=== PATIENT | female | born 1940 | race Caucasian/White ===

== ENCOUNTER 2022-06-02 00:45 | Observation (INO) | payer MEDICARE, SELFPAY ==
[2022-06-02] VITALS (9 sets, daily range): BP systolic 133–209; BP diastolic 66–107; PULSE 63–98; RESP 16–20; TEMP 36.4–37; O2SAT 94–98; BMI 36.3; BMI 34.2
--- NOTE | 2022-06-02 01:56 | CT_ITS ---
EXAM: CT ABDOMEN AND PELVIS WITH INTRAVENOUS CONTRAST CLINICAL INDICATION: Left sided pain TECHNIQUE: Helically acquired images were obtained of the abdomen and pelvis with intravenous contrast. This CT exam was performed using one or more of the following dose reduction techniques: automated exposure control, adjustment of the mA and/or kV according to patient size, and/or use of iterative reconstruction technique. This report was created using [employer] report generation technology. CONTRAST: IV 100mL Isovue-[id number] RADIATION DOSE: Total DLP: 1124.70 mGy-cm. COMPARISON: None. FINDINGS: LOWER THORAX: Visualized lung bases are clear. Mild coronary artery calcification is noted. No significant pericardial effusion. ABDOMEN: LIVER: Moderate fatty infiltration of the liver. Portal veins enhance normally. GALLBLADDER AND BILE DUCTS: Gallbladder is partially contracted. No calcified gallstones or biliary ductal dilatation. No common duct stones are seen. No gallbladder distention or wall edema. PANCREAS: Pancreatic body and tail are slightly prominent as compared to the head, with mild hazy peripancreatic stranding about the body and tail, consistent with mild acute pancreatitis. Trace of stranding about the pancreatic head and uncinate process, radiating toward the base of the mesentery. There is minimal associated thickening of Gerota''s fascia on the left. No nonenhancing parenchyma, pseudocyst, or pancreatic ductal dilatation identified. SPLEEN: Unremarkable. Normal size without focal cystic or solid mass. ADRENALS: Unremarkable. No nodules. KIDNEYS AND URETERS: Cortical scarring at the upper pole of the right kidney. Extremely small/atrophic left kidney. 4 mm lobulated nonobstructing stone within the interpolar collecting system of the right kidney. Small nonobstructing stone at the upper pole of the left kidney. STOMACH AND BOWEL: Stomach is decompressed. No distended small bowel loops. Large uncomplicated diverticulum projects from the duodenum. Numerous diverticula project from the descending and sigmoid colon, without evidence for diverticulitis. PELVIS: APPENDIX: Normal. No evidence of acute appendicitis. BLADDER: Urinary bladder is nearly empty. REPRODUCTIVE: The hypodense endometrial stripe is prominent for patient of this age group, measuring 12 mm in thickness. No adnexal mass. ABDOMEN and PELVIS: INTRAPERITONEAL SPACE: Unremarkable. No ascites or other fluid collection. No free air. BONES/JOINTS: Severe degenerative disc space narrowing with vacuum disc phenomenon, endplate sclerosis and marginal osteophytes at the L2/3 level. Less severe degenerative disc space narrowing with mild endplate sclerosis and vacuum phenomenon at L5/S1. Severe lower lumbar facet arthritis with slight anterolisthesis of L4 on L5. No suspicious lytic or blastic abnormality. SOFT TISSUES: Unremarkable. No discrete abdominal or pelvic wall hernia. VASCULATURE: Calcific abdominal aorta and its branches. No AAA. SMA and CAIN enhance normally. LYMPH NODES: Unremarkable. No enlarged lymph nodes. CT/Abdomen/Pelvis W IV Cont ONLY IMPRESSION: Findings of mild acute pancreatitis. No pancreatic pseudocyst or nonenhancing parenchyma. Fatty infiltration of the liver. No gallstones or biliary ductal dilatation. Diverticulosis coli without evidence for acute diverticulitis. Prominent endometrial stripe, which may be due to exogenous hormonal therapy but SCISSORS SHARPENER follow-up is suggested, especially if there is a history of postmenopausal bleeding. Electronically Signed: Leo Frank MD at 3:29 EST ,
--- NOTE | 2022-06-02 01:57 | ED.VIS.GI ---
HPI HPI - GI History of Present Illness Chief Complaint: Abd Pain Informant: patient Narrative Narrative: Patient tells me she has been having abdominal discomfort and bloating for she thinks about 4 or 5 days. Her appetite has been down but she has no nausea or vomiting. She states she just does not feel like eating. She is not sure when her last bowel movement was but thinks it was about a week ago. No blood in the stool. She is still passing gas. She describes the pain as very gassy. She is able to eat and drink. It does not necessarily bother her stomach. No fevers or chills. She did state that her urine has been a little darker and she has noticed a stronger odor over the last 4 or so days. There is no actual dysuria. She thought this was due to not drinking as much fluids. She denies ever having any abdominal surgery including TOUCH UP PAINTER HAND, cholecystectomy or appendectomy. She does have an occasional martini in the evening but cannot recall when she had the last 1. It is just an occasional thing. No change in medications. She has a history of high blood pressure thyroid disease. Medicines are reviewed. She also has a history of some mild GERD. She has no sour or acid taste in her mouth today. She has no back or flank pain. She has not been lightheaded syncopal or presyncopal. No chest pain or trouble breathing. PFSH PFSH Medical History Anxiety Depression GERD (gastroesophageal reflux disease) Hypertension Hypothyroidism Irregular heart beat Kidney disease Smoker Home Medications amlodipine 10 mg tablet (Norvasc) 10 mg PO DAILY 06/02/22 [History Last Taken Unknown] aspirin 81 mg chewable tablet 81 mg PO DAILY 06/02/22 [History Last Taken Unknown] citalopram 40 mg tablet 40 mg PO DAILY 06/02/22 [History Last Taken Unknown] levothyroxine 100 mcg tablet 100 mcg PO DAILY 06/02/22 [History Last Taken Unknown] lorazepam 0.5 mg tablet 0.5 mg PO DAILY PRN Anxiety 06/02/22 [History Last Taken Unknown] omeprazole 20 mg capsule,delayed release 20 mg PO DAILY 06/02/22 [History Last Taken Unknown] Allergy/AdvReac Type Severity Reaction Status Date / Time No Known Allergies Allergy Verified 06/02/22 00:54 Social History Smoking Status: Current every day smoker tobacco type: cigarettes ROS ROS ED Constitutional Constitutional ED: Denies chills, fever(s) or subjective ENT ENT ED: Denies rhinorrhea Cardiovascular Cardiovascular: Denies chest pain or palpitations Respiratory/Chest Respiratory/Chest: Denies cough or dyspnea Gastrointestinal Gastrointestinal: Reports abdominal pain and constipation; Denies diarrhea, melena, nausea or vomiting Genitourinary Genitourinary ED: Reports other Details: Urine has been darker and occasionally malodorous for about 4 days. ; Denies dysuria, hematuria or urinary frequency Musculoskeletal Musculoskeletal: Denies back pain Integumentary Denies rash Neurologic Neurologic: Denies headache(s) Endocrine Endocrinology: Denies polydipsia or polyuria Hematologic/Lymphatic Hematologic/Lymphatic: Denies easy bleeding, easy bruising or lymphadenopathy Allergic/Immunologic Allergic/Immunologic ED: Denies urticaria EXAM Physical Exam Const Vital Signs: 06/02/22 00:48 06/02/22 03:54 06/02/22 04:40 Temperature 98.6 F 97.9 F Temperature Source Oral Temporal Pulse Rate 98 77 Respiratory Rate 20 H 16 16 Blood Pressure 209/107 H 167/90 H Blood Pressure Mean 141 115 Pulse Ox 94 94 Oxygen Delivery Method Room Air Room Air Positive well nourished, well developed and obese General Appearance ED: well developed and NAD Nutritional Appearance: obese HEENT HEENT Narrative: Mildly dry mucous membranes. Eyes General Eye ED: Yes scleral icterus Neck supple Resp normal respiratory effort and clear to auscultation bilaterally Cardio regular rate and regular rhythm GI GI Narrative: Abdomen is soft but does appear to be somewhat distended. There seems to be mild tenderness and even some firmness in the left upper quadrant. Back/Spine no CVA tenderness Extremity full ROM Neuro Neuro Narrative: Patient is awake alert appropriate. She is actually fairly good informant for her past history and medications. Sensorium / Orientation: alert Psych mental status grossly normal Skin no wounds MDM MDM MDM Narrative Medical decision making narrative: CBC shows mild elevation of the hemoglobin that could be due to some slight hemoconcentration. White count and platelets are normal. Electrolytes show minimally decreased potassium sodium. Creatinine is just slightly high. I do not have a baseline for her. Glucose is also high at 218. She denies history of diabetes. Liver function tests are not showing any marked abnormalities. However her lipase is 1746. With this patient's age, worsening pain for 5 days, decreased p.o., generalized weakness, living at home and elevated glucose with her acute pancreatitis and is discussed case with hospitalist. Hospitalist came down to see her and agreed to admit. We do not feel that this patient likely would do well at home. She states she is already feeling weak and does not feel like she can eat. Lab Data Attestation: I reviewed the patient's lab results. Labs: Laboratory Results - last 24 hr 06/02/22 06/02/22 06/02/22 01:07 01:07 01:07 WBC 9.1 RBC 5.13 Hgb 15.4 H Hct 45.8 MCV 89.3 MCH 30.0 MCHC 33.6 RDW Std Deviation 40.2 RDW Coeff of Juan Alberto 12.1 Plt Count 227 MPV 9.0 Immature Gran % (Auto) 0.300 Neut % (Auto) 66.8 Lymph % (Auto) 19.2 [place] % (Auto) 11.5 H Eos % (Auto) 1.8 Baso % (Auto) 0.4 Absolute Neuts (auto) 6.1 Absolute Lymphs (auto) 1.75 Nucleated RBC % 0 Sodium 134 L Potassium 3.2 L Chloride 99 Carbon Dioxide 30.0 Anion Gap 5 BUN 11 Creatinine 1.20 H Estim Creat Clear Calc 35.00 Est GFR (MDRD) Af Amer 56 L Est GFR (MDRD) Non-Af 46 L BUN/Creatinine Ratio 9.2 L Glucose 218 H Hemoglobin A1c Calcium 9.0 Total Bilirubin 0.30 AST 16 ALT 17 Alkaline Phosphatase 61 Total Protein 7.6 Albumin 2.9 L Globulin 4.7 H Albumin/Globulin Ratio 0.6 L Triglycerides Cholesterol LDL Cholesterol VLDL Cholesterol HDL Cholesterol Lipase 1746 H Urine Color Urine Clarity Urine pH Ur Specific [place] Urine Protein Urine Glucose (UA) Urine Ketones Urine Occult Blood Urine Nitrite Urine Bilirubin Urine Urobilinogen Ur Leukocyte Esterase Urine RBC Urine WBC Ur Squamous Epith Cells Urine Bacteria Urine Mucus 06/02/22 06/02/22 06/02/22 01:07 01:07 02:08 WBC RBC Hgb Hct MCV MCH MCHC RDW Std Deviation RDW Coeff of Juan Alberto Plt Count MPV Immature Gran % (Auto) Neut % (Auto) Lymph % (Auto) [place] % (Auto) Eos % (Auto) Baso % (Auto) Absolute Neuts (auto) Absolute Lymphs (auto) Nucleated RBC % Sodium Potassium Chloride Carbon Dioxide Anion Gap BUN Creatinine Estim Creat Clear Calc Est GFR (MDRD) Af Amer Est GFR (MDRD) Non-Af BUN/Creatinine Ratio Glucose Hemoglobin A1c 7.9 H Calcium Total Bilirubin AST ALT Alkaline Phosphatase Total Protein Albumin Globulin Albumin/Globulin Ratio Triglycerides 110 Cholesterol 170 LDL Cholesterol 108 VLDL Cholesterol 22 HDL Cholesterol 40 Lipase Urine Color Yellow Urine Clarity Clear Urine pH 7.0 Ur Specific [place] 1.010 Urine Protein 500 H Urine Glucose (UA) 100 H Urine Ketones Negative Urine Occult Blood 25 H Urine Nitrite Positive H Urine Bilirubin Negative Urine Urobilinogen 1 H Ur Leukocyte Esterase 500 H Urine RBC 0-5 SEEN Urine WBC 0-5 SEEN Ur Squamous Epith Cells 0-5 SEEN Urine Bacteria 2+ Urine Mucus 0 SEEN Radiography Diagnostic Testing: Clinical Impression(s) from Imaging Studies Abdomen/Pelvis CT 06/02/22 01:56 IMPRESSION: Findings of mild acute pancreatitis. No pancreatic pseudocyst or nonenhancing parenchyma. Fatty infiltration of the liver. No gallstones or biliary ductal dilatation. Diverticulosis coli without evidence for acute diverticulitis. Prominent endometrial stripe, which may be due to exogenous hormonal therapy but TOUCH UP PAINTER HAND follow-up is suggested, especially if there is a history of postmenopausal bleeding. Electronically Signed: Leo Frank MD at 3:29 EST , CT scan does show signs of pancreatitis. No gallstones or biliary ductal dilatation was seen. Diverticulosis but no diverticulitis. There was a prominent endometrial stripe. This can be worked up as outpatient. Discharge Plan Dx/Rx/DC Orders Clinical Impression: Acute pancreatitis, Generalized weakness Disposition Disposition: Acute Care Hospital [facility] Discharge Date/Time: 06/02/22 06:32
[2022-06-02 02:12] LABS: Absolute Lymphocyte Count 1.75 X10^3/uL (0.83-4.51); Absolute Neutrophil Count 6.1 X10^3/uL (2.0-7.7); Basophil# 0.04 X10^3/uL; Basophil% 0.4 % (0-1); Eosinophil# 0.16 X10^3/uL; Eosinophils% 1.8 % (0-5); Hematocrit 45.8 % (37-47); Hemoglobin 15.4 g/dL (12.0-15.0); Lymphocyte # 1.75 X10^3/ul (0.83-4.51); Lymphocyte % 19.2 % (19-41); Mean Corp Hgb Conc 33.6 g/dL (32-36); Mean Corpuscular Volume 89.3 fL (81-99); Monocyte# 1.05 X10^3/uL; Monocyte% 11.5 % (0-10); NRBC Flagged by Analyzer 0 % (0-5); Neutrophil # 6.09 X10^3/uL (2.7-7.7); Neutrophil % 66.8 % (47-70); Platelet Count 227 K/mm3 (150-450); RBC Distribution Width CV 12.1 % (11.6-14.6); RBC Distribution Width SD 40.2 fl (35.1-43.9); Red Blood Count 5.13 M/mm3 (4.2-5.4); White Blood Count 9.1 K/mm3 (4.4-11.0)
[2022-06-02 02:13] LABS: Mucous, Urine 0 SEEN /hpf (<or=2+)
[2022-06-02 02:29] LABS: Color, Urine Yellow (Yellow); Glucose, Dipstick 100 mg/dl (Normal); Ketone-Dipstick Negative (Negative); Leukocyte Esterase-Dipstick 500 /ul (Negative); Nitrite-Dipstick Positive (Negative); Occult Blood-Urine 25 /ul (Negative); Protein-Dipstick 500 mg/dl (Negative); Urine Bilirubin Dipstick Negative (Negative); Urine Clarity Clear (Clear); Urine Urobilinogen 1 mg/dl (Normal)
[2022-06-02 02:37] LABS: ALB/GLOB Ratio 0.6 RATIO (0.9-2.4); AST(SGOT) 16 U/L (15-37); Alanine Aminotransfer ALT/SGPT 17 U/L (13-56); Albumin, Serum 2.9 g/dL (3.2-5.0); Alkaline Phosphatase 61 U/L (45-117); Anion Gap 5 (5-15); BUN 11 mg/dL (7-18); BUN/Creat Ratio 9.2 RATIO (10-20); Chloride 99 mmol/L (98-107); EST Glomerular Filtration Rate 46 mL/min (>60); Est Glom Filt Rate - Afr Amer 56 mL/min (>60); Globulin 4.7 g/dL (2.2-4.2); Glucose 218 mg/dL (74-106); Potassium 3.2 mmol/L (3.5-5.1); Protein, Total 7.6 g/dL (6.4-8.2); Sodium Level 134 mmol/L (136-145)
[2022-06-02 02:43] LABS: Bacteria 2+ /hpf (None Seen); Red Blood Cells-Urine 0-5 SEEN /hpf (0-5); Squamous Epithelial Cells - UA 0-5 SEEN /hpf (5-10); White Blood Cells 0-5 SEEN /hpf (0-5)
[2022-06-02 04:13] LABS: Lipase 1746 U/L (73-393)
--- NOTE | 2022-06-02 05:31 | US_ITS ---
Examination: Right upper quadrant ultrasound. INDICATION: Pancreatitis. TECHNIQUE: A dedicated ultrasound of the right upper quadrant was obtained including Doppler images. COMPARISON: CT dated June 02, 2022 FINDINGS: The liver is diffusely echogenic consistent with fatty infiltration. There is hepatomegaly. The common bile duct measures 3.9 mm. The gallbladder is within normal limits. No gallstones are visualized. The visualized pancreas is prominent. The right kidney measures 11.2 cm in length. There is no hydronephrosis. There is a nonobstructing 6.4 mm calculus. US/Gallbladder IMPRESSION: Prominent pancreas, may be secondary to pancreatitis. Fatty infiltration of the liver associated with hepatomegaly. Nonobstructing 6.4 mm right renal calculus. Electronically Signed: Annie Steward MD at 10:37 EST ,
--- NOTE | 2022-06-02 05:35 | CASEMGMT ---
Addendum entered and electronically signed by Vero Avila RN 06/02/22 20:43: Correction: Correct time was 1735. Moshe Avila RN Original Note: VICTORIANO CM: VICTORIANO LIGHT in to complete LÓPEZ form at this time.? RN KULDEEP explained L[employer]PEZ for to patient, patient voiced understanding.? Patient signed L[employer]PE[employer] Form and filed in chart.? Patient provided with copy of signed L[employer]PEZ form.? Patient had no further questions or concerns.?? Pt states she is independent with ADLs prior to admission and denies any concerns with discharging to home when medically ready. Moshe Avila RN CM
--- NOTE | 2022-06-02 05:37 | HP.PCM.HOS_ITS ---
HPI - General General Date of Admission: 06/02/22 Date of Service: 06/02/22 Chief Complaint: Abdominal pain HPI Narrative 81-year-old female with history of tobacco use, hypertension, hypothyroidism who presented to [facility] 06/02/2022 with worsening abdominal pain. She is found to have elevated lipase and CT suggestive of pancreatitis, hospitalist consulted for evaluation for potential admission. She reports that she has not been feeling well for about 5 days and had decreased appetite and then over the past 2 days she has had worsening abdominal pain that was significant the day of presentation. It did completely resolve independently in the ER but she continues to have generalized weakness and significant epigastric abdominal tenderness and appears volume depleted. Discussed home versus admitted for observation and she was agreeable to observation. Denies any fevers, has not had problems with significant nausea but does feel like her stomach is currently empty and feels uneasy. Has had some constipation. Denies other complaints today. PFSH Medical History Anxiety Depression GERD (gastroesophageal reflux disease) Hypertension Hypothyroidism Irregular heart beat Kidney disease Smoker Home Medications amlodipine 10 mg tablet (Norvasc) 10 mg PO DAILY 06/02/22 [History Last Taken Unknown] aspirin 81 mg chewable tablet 81 mg PO DAILY 06/02/22 [History Last Taken Unknown] citalopram 40 mg tablet 40 mg PO DAILY 06/02/22 [History Last Taken Unknown] levothyroxine 100 mcg tablet 100 mcg PO DAILY 06/02/22 [History Last Taken Unknown] lorazepam 0.5 mg tablet 0.5 mg PO DAILY PRN Anxiety 06/02/22 [History Last Taken Unknown] omeprazole 20 mg capsule,delayed release 20 mg PO DAILY 06/02/22 [History Last Taken Unknown] Allergy/AdvReac Type Severity Reaction Status Date / Time No Known Allergies Allergy Verified 06/02/22 00:54 Social History Smoking Status: Current every day smoker tobacco type: cigarettes ROS Constitutional Constitutional: Denies chills or fever(s) Eyes Eyes: Denies change in vision ENT HEENT: Denies headache(s), nasal congestion or sore throat Cardiovascular Cardiovascular: Denies chest pain or palpitations Respiratory/Chest Respiratory/Chest: Denies cough or productive cough Gastrointestinal Gastrointestinal: Reports other Details: Epigastric tenderness, poor p.o. intake, constipation Genitourinary Genitourinary: Reports other Details: denies changes in urination Musculoskeletal Musculoskeletal: Reports other Details: Generalized weakness Neurologic Neurologic: Denies focal weakness, numbness or tingling Psychiatric Psychiatric: Denies anxiety Hematologic/Lymphatic Hematologic/Lymphatic: Denies easy bleeding Allergic/Immunologic Allergic/Immunologic: Reports other Details: denies rashes Vital Signs Vital Signs Vital Signs: 06/02/22 00:48 06/02/22 03:54 06/02/22 04:40 Temperature 98.6 F 97.9 F Temperature Source Oral Temporal Pulse Rate 98 77 Respiratory Rate 20 H 16 16 Blood Pressure 209/107 H 167/90 H Blood Pressure Mean 141 115 Pulse Ox 94 94 Oxygen Delivery Method Room Air Room Air Weight Weight: 102.1 kg Body Mass Index (BMI) 36.3 Physical Exam Const alert and no apparent distress Constitutional Narrative: Oriented HEENT normocephalic and head/scalp atraumatic Eyes Eyes Narrative: EOM grossly intact, anicteric Neck supple Resp normal respiratory effort and clear to auscultation bilaterally Cardio regular rate and regular rhythm GI soft to palpation GI Narrative: Significant tenderness to palpation in epigastric region, no rebound, no involuntary guarding, no rigidity Extremity Extremity Narrative: No edema appreciated Neuro moves all extremities Neuro Narrative: No overt focal deficits appreciated Psych Psych Narrative: Cooperative Results Lab / Micro Data Result Diagrams: 06/02/22 01:07 06/02/22 01:07 Labs: Laboratory Results - last 24 hr 06/02/22 01:07: WBC 9.1, RBC 5.13, Hgb 15.4 H, Hct 45.8, MCV 89.3, MCH 30.0, MCHC 33.6, RDW Std Deviation 40.2, RDW Coeff of Juan Alberto 12.1, Plt Count 227, MPV 9.0, Immature Gran % (Auto) 0.300, Neut % (Auto) 66.8, Lymph % (Auto) 19.2, [place] % (Auto) 11.5 H, Eos % (Auto) 1.8, Baso % (Auto) 0.4, Absolute Neuts (auto) 6.1, Absolute Lymphs (auto) 1.75, Nucleated RBC % 0 06/02/22 01:07: Sodium 134 L, Potassium 3.2 L, Chloride 99, Carbon Dioxide 30.0, Anion Gap 5, BUN 11, Creatinine 1.20 H, Estim Creat Clear Calc 35.00, Est GFR (MDRD) Af Amer 56 L, Est GFR (MDRD) Non-Af 46 L, BUN/Creatinine Ratio 9.2 L, Glucose 218 H, Calcium 9.0, Total Bilirubin 0.30, AST 16, ALT 17, Alkaline Phosphatase 61, Total Protein 7.6, Albumin 2.9 L, Globulin 4.7 H, Albumin/Globulin Ratio 0.6 L 06/02/22 01:07: Lipase 1746 H 06/02/22 02:08: Urine Color Yellow, Urine Clarity Clear, Urine pH 7.0, Ur Specific [place] 1.010, Urine Protein 500 H, Urine Glucose (UA) 100 H, Urine Ketones Negative, Urine Occult Blood 25 H, Urine Nitrite Positive H, Urine Bilirubin Negative, Urine Urobilinogen 1 H, Ur Leukocyte Esterase 500 H, Urine RBC 0-5 SEEN, Urine WBC 0-5 SEEN, Ur Squamous Epith Cells 0-5 SEEN, Urine Bacteria 2+, Urine Mucus 0 SEEN Radiology Impression Abdomen/Pelvis CT 06/02/22 01:56 IMPRESSION: Findings of mild acute pancreatitis. No pancreatic pseudocyst or nonenhancing parenchyma. Fatty infiltration of the liver. No gallstones or biliary ductal dilatation. Diverticulosis coli without evidence for acute diverticulitis. Prominent endometrial stripe, which may be due to exogenous hormonal therapy but HAND BRAILLE TRANSCRIBER follow-up is suggested, especially if there is a history of postmenopausal bleeding. Electronically Signed: Leo Frank MD at 3:29 EST , Assessment & Plan Assessment/Plan (1) Acute pancreatitis: PLAN: Plan #Acute pancreatitis Lipase 1746, epigastric abdominal pain, and CT with findings of mild acute pancreatitis. We will fluid resuscitate, will give 2L total bolus and 150/hr I's and O's Not nauseous and feels like she would like to eat, will try clear liquids and advance as tolerated Does have generalized weakness, will consult PT and OT Pain is resolved, will add oral pain medication in the event there is further pain, can consider IV if severe pain returns Will obtain RUQ Unclear etiology, does consume alcoholic beverages what sounds to be semi regularly, has not drank in roughly a week. Will check lipids. Hold CCB as this could theoretically cause pancreatitis. Eval for gallbladder pathology #Hypertensive urgency Improved with improvement in pain Amlodipine could be implicated in pancreatitis and this has been held, will add alternative agent #Hyperglycemia Will check A1c, no history of diabetes noted Sliding scale and Accu-Cheks #CKD versus EDMUND No baseline in our system Trend BMP Rehydrate #Prominent endometrial stripe Seen on CT Will need HAND BRAILLE TRANSCRIBER follow-up on discharge #DVT ppx: Ross Curiel MD Charges/Coding Visit Charges OBSV E&M: 88753 Initial observation care L2
[2022-06-02 05:59] LABS: Cholesterol 170 mg/dL (200); High Density Lipoprotein 40 mg/dL; Triglycerides 110 mg/dL; Very Low Density Lipoprotein 22 mg/dL (5-40)
[2022-06-02 07:52] LABS: Hemoglobin A1c 7.9 % (3.8-5.6)
--- NOTE | 2022-06-02 07:52 | PN.HOSP_ITS ---
Subjective Subjective Patient is an 81-year-old female who presented with abdominal pain was found to have elevated lipase levels consistent with acute pancreatitis admitted to a monitored bed. Patient was also found to have markedly elevated blood pressure on admission Objective Data Objective Data Vital Signs: Vital Signs Temp Pulse Resp BP Pulse Ox O2 Del Method 97.5 F L 75 18 171/100 H 97 Room Air 06/02/22 07:00 06/02/22 07:00 06/02/22 07:00 06/02/22 07:00 06/02/22 07:00 06/02/22 07:00 Oxygen Delivery Method Room Air Weight: 96.2 kg Body Mass Index (BMI) 34.2 Intake & Output: Intake and Output for Last 24 Hours 05/31/22 06/01/22 06/02/22 23:59 23:59 23:59 Intake Total 500 / 500 Balance 500 / 500 Lab / Micro Data Result Diagrams: 06/02/22 01:07 06/02/22 01:07 Labs: Laboratory Results - last 24 hr 06/02/22 01:07: WBC 9.1, RBC 5.13, Hgb 15.4 H, Hct 45.8, MCV 89.3, MCH 30.0, MCHC 33.6, RDW Std Deviation 40.2, RDW Coeff of Juan Alberto 12.1, Plt Count 227, MPV 9.0, Immature Gran % (Auto) 0.300, Neut % (Auto) 66.8, Lymph % (Auto) 19.2, [place] % (Auto) 11.5 H, Eos % (Auto) 1.8, Baso % (Auto) 0.4, Absolute Neuts (auto) 6.1, Absolute Lymphs (auto) 1.75, Nucleated RBC % 0 06/02/22 01:07: Sodium 134 L, Potassium 3.2 L, Chloride 99, Carbon Dioxide 30.0, Anion Gap 5, BUN 11, Creatinine 1.20 H, Estim Creat Clear Calc 35.00, Est GFR (MDRD) Af Amer 56 L, Est GFR (MDRD) Non-Af 46 L, BUN/Creatinine Ratio 9.2 L, Gl ucose 218 H, Calcium 9.0, Total Bilirubin 0.30, AST 16, ALT 17, Alkaline Phosphatase 61, Total Protein 7.6, Albumin 2.9 L, Globulin 4.7 H, Albumin/Globulin Ratio 0.6 L 06/02/22 01:07: Lipase 1746 H 06/02/22 01:07: Triglycerides 110, Cholesterol 170, LDL Cholesterol 108, VLDL Cholesterol 22, HDL Cholesterol 40 06/02/22 02:08: Urine Color Yellow, Urine Clarity Clear, Urine pH 7.0, Ur Specific [place] 1.010, Urine Protein 500 H, Urine Glucose (UA) 100 H, Urine Ketones Negative, Urine Occult Blood 25 H, Urine Nitrite Positive H, Urine Bilirubin Negative, Urine Urobilinogen 1 H, Ur Leukocyte Esterase 500 H, Urine RBC 0-5 SEEN, Urine WBC 0-5 SEEN, Ur Squamous Epith Cells 0-5 SEEN, Urine Bacteria 2+, Urine Mucus 0 SEEN Radiography Diagnostic Testing: Radiology Impression Abdomen/Pelvis CT 06/02/22 01:56 IMPRESSION: Findings of mild acute pancreatitis. No pancreatic pseudocyst or nonenhancing parenchyma. Fatty infiltration of the liver. No gallstones or biliary ductal dilatation. Diverticulosis coli without evidence for acute diverticulitis. Prominent endometrial stripe, which may be due to exogenous hormonal therapy but SURVEYOR'S ASSISTANT follow-up is suggested, especially if there is a history of postmenopausal bleeding. Electronically Signed: Leo Frank MD at 3:29 EST , Physical Exam Narrative GENERAL: cooperative HEENT: Atraumatic; normocephalic EYES; Anicteric, Normal Conjunctiva NECK; supple, normal thyroid, RESPIRATORY: Diminished to auscultation CARDIOVASCULAR: Regular S1 S2, GI: soft, normoactive bowel sounds, : No Renal angle tenderness; EXTREMITIES: No edema, no clubbing, MUSCULOSKELETAL: no muscle wasting NEURO: Awake; no lateralizing signs. SKIN: No Rash PSYCH; Flat affect Assessment & Plan Assessment/Plan (1) Acute pancreatitis: PLAN: Plan Patient is an 81-year-old female who presented with abdominal pain was found to have elevated lipase levels consistent with acute pancreatitis admitted to a monitored bed. Patient was also found to have markedly elevated blood pressure on admission 1. Acute pancreatitis ? Questionable alcohol induced pancreatitis. [facility]. As part of her work-up CT of the abdomen was ordered which demonstrated fatty infiltration of the liver no gallstones or biliary ductal dilatation. Right upper quadrant ultrasound ordered on admission results pending. Patient was started on clear liquids on admission plan is advance as tolerated with improvement in patient's pain. 2. Acute hypertensive urgency ? Attributed to patient's pain do expect improvement in blood pressure with adequate control of patient's pain. Patient oral antihypertensives resumed 3. Liver disease ? Due to combination of alcohol use as well as obesity 4. Hyperglycemia ? Secondary to new onset diabetes mellitus type 2 ? Patient hemoglobin A1c was 7.9. Patient started on Accu-Cheks before meals and at bedtime with sliding scale coverage 5. Acute renal insufficiency ? Started on IV fluid with subsequent monitoring of electrolyte ordered 6.Prominent endometrial stripe Seen on CT patient informed of the result with plans for patient to follow-up with RESIDENTIAL SUBSTANCE ABUSE COUNSELOR following discharge 7. Class I obesity with BMI of 34.2 ? Weight loss advised 8. Hypothyroidism - Patient is on levothyroxine home dose continued 9. Depression with anxiety ? Patient is on citalopram and lorazepam as needed did continue 10. GERD ? On PPI did continue 11. DVT prophylaxis ? SC Lovenox Total prolonged time spent evaluating patient review of diagnostic data subsequent adjustment of patient management orders and discussion with other providers involved in patient's care; 50-minute Charges/Coding Procedures Hospitalists Procedures: 62004 Prolonged InPt Service; first hour
[2022-06-02] MEDS: Lactated Ringers 1,000 ML 150 ML IV ×2 (09:32→16:45)
[2022-06-02] MEDS: 0.9% Saline Lock 10 ML Syringe IV (09:35)
[2022-06-02] MEDS: Aspirin 81 MG TAB.CHEW PO (09:37)
[2022-06-02] MEDS: Enoxaparin 40 MG/0.4 ML Syringe SC (09:38)
[2022-06-02] MEDS: Potassium Chloride Oral Tablet 20 MEQ 40 MEQ PO (09:38)
[2022-06-02] MEDS: Citalopram 40 MG TABLET PO (09:38)
[2022-06-02] MEDS: Carvedilol 6.25 MG Tablet PO ×2 (09:38→21:12)
[2022-06-02] MEDS: Pantoprazole Sodium 20 MG Tablet PO (09:39)
[2022-06-02 10:04] LABS: AST(SGOT) 18 U/L (15-37); Alanine Aminotransfer ALT/SGPT 17 U/L (13-56); Albumin, Serum 2.9 g/dL (3.2-5.0); Alkaline Phosphatase 62 U/L (45-117); Anion Gap 6 (5-15); BUN 11 mg/dL (7-18); BUN/Creat Ratio 10.5 RATIO (10-20); Bilirubin, Direct 0.18 mg/dL (0.00-0.30); Calcium,Total 9.1 mg/dL (8.5-10.1); Chloride 101 mmol/L (98-107); Creatinine, Serum 1.05 mg/dL (0.55-1.02); EST Glomerular Filtration Rate 54 mL/min (>60); Est Glom Filt Rate - Afr Amer 65 mL/min (>60); Globulin 4.5 g/dL (2.2-4.2); Glucose 167 mg/dL (74-106); Lipase 2283 U/L (73-393); Phosphorus 3.1 mg/dL (2.5-4.9); Potassium 3.5 mmol/L (3.5-5.1); Protein, Total 7.4 g/dL (6.4-8.2); Sodium Level 134 mmol/L (136-145)
[2022-06-02 10:05] LABS: Bedside Glucose 144 mg/dL (74-106)
[2022-06-02] MEDS: amLODIPine 10 MG Tablet PO (12:17)
[2022-06-02] MEDS: Insulin Lispro 100 UNIT/ML INSULN.PEN SC ×2 (12:25→21:12)
[2022-06-02 12:35] LABS: Bedside Glucose 193 mg/dL (74-106)
[2022-06-02] MEDS: Potassium Chloride Oral Tablet 20 MEQ PO (16:44)
[2022-06-02 17:05] LABS: Bedside Glucose 134 mg/dL (74-106)
[2022-06-02 21:40] LABS: Bedside Glucose 168 mg/dL (74-106)
[2022-06-03] VITALS (7 sets, daily range): BP systolic 138–170; BP diastolic 74–91; PULSE 54–73; RESP 16–20; TEMP 36.7–36.9; O2SAT 92–94
[2022-06-03 04:56] LABS: Absolute Lymphocyte Count 2.16 X10^3/uL (0.83-4.51); Absolute Neutrophil Count 5.5 X10^3/uL (2.0-7.7); Basophil# 0.04 X10^3/uL; Basophil% 0.5 % (0-1); Eosinophil# 0.28 X10^3/uL; Eosinophils% 3.2 % (0-5); Hematocrit 42.7 % (37-47); Hemoglobin 14.7 g/dL (12.0-15.0); Lymphocyte # 2.16 X10^3/ul (0.83-4.51); Lymphocyte % 24.4 % (19-41); Mean Corp Hgb Conc 34.4 g/dL (32-36); Mean Corpuscular Hgb 30.9 pg (27.0-32.0); Mean Corpuscular Volume 89.7 fL (81-99); Mean Platelet Vol. 8.6 fl (6.2-12.0); Monocyte# 0.92 X10^3/uL; Monocyte% 10.4 % (0-10); NRBC Flagged by Analyzer 0 % (0-5); Neutrophil # 5.45 X10^3/uL (2.7-7.7); Neutrophil % 61.3 % (47-70); Platelet Count 240 K/mm3 (150-450); RBC Distribution Width CV 12.2 % (11.6-14.6); RBC Distribution Width SD 40.4 fl (35.1-43.9); Red Blood Count 4.76 M/mm3 (4.2-5.4); White Blood Count 8.9 K/mm3 (4.4-11.0)
[2022-06-03 05:50] LABS: ALB/GLOB Ratio 0.6 RATIO (0.9-2.4); AST(SGOT) 16 U/L (15-37); Alanine Aminotransfer ALT/SGPT 19 U/L (13-56); Albumin, Serum 2.7 g/dL (3.2-5.0); Alkaline Phosphatase 58 U/L (45-117); Anion Gap 6 (5-15); BUN 8 mg/dL (7-18); Calcium,Total 9.1 mg/dL (8.5-10.1); Chloride 98 mmol/L (98-107); Creatinine, Serum 0.89 mg/dL (0.55-1.02); EST Glomerular Filtration Rate 65 mL/min (>60); Est Glom Filt Rate - Afr Amer 79 mL/min (>60); Globulin 4.2 g/dL (2.2-4.2); Glucose 141 mg/dL (74-106); Lipase 1420 U/L (73-393); Phosphorus 2.9 mg/dL (2.5-4.9); Protein, Total 6.9 g/dL (6.4-8.2); Sodium Level 131 mmol/L (136-145)
[2022-06-03] MEDS: Levothyroxine 100 MCG Tablet PO (06:39)
[2022-06-03 07:15] LABS: Bedside Glucose 136 mg/dL (74-106)
--- NOTE | 2022-06-03 08:23 | PN.HOSP_ITS ---
Subjective Subjective Patient seen abdominal pain significantly improved plan is to advance patient to regular diet Objective Data Objective Data Vital Signs: Vital Signs Temp Pulse Resp BP Pulse Ox O2 Del Method 98.1 F 72 18 169/88 H 92 Room Air 06/03/22 03:35 06/03/22 03:35 06/03/22 03:35 06/03/22 03:35 06/03/22 03:35 06/03/22 07:44 Oxygen Delivery Method Room Air Weight: 96.2 kg Body Mass Index (BMI) 34.2 Intake & Output: Intake and Output for Last 24 Hours 06/01/22 06/02/22 06/03/22 23:59 23:59 23:59 Intake Total 3797.5 / 3797.5 Balance 3797.5 / 3797.5 Lab / Micro Data Result Diagrams: 06/03/22 04:17 06/03/22 04:17 Labs: Laboratory Results - last 24 hr 06/02/22 09:06: POC Glucose 144 H 06/02/22 09:23: Sodium 134 L, Potassium 3.5, Chloride 101, Carbon Dioxide 27.0, Anion Gap 6, BUN 11, Creatinine 1.05 H, Estim Creat Clear Calc 40.00, Est GFR (MDRD) Af Amer 65, Est GFR (MDRD) Non-Af 54 L, BUN/Creatinine Ratio 10.5, Glucose 167 H, Calcium 9.1, Phosphorus 3.1, Magnesium 2.0, Total Bilirubin 0.50, Direct Bilirubin 0.18, AST 18, ALT 17, Alkaline Phosphatase 62, Total Protein 7.4, Albumin 2.9 L, Globulin 4.5 H, Lipase 2283 H 06/02/22 09:23: Phosphorus Cancelled 06/02/22 12:16: POC Glucose 193 H 06/02/22 16:35: POC Glucose 134 H 06/02/22 21:10: POC Glucose 168 H 06/03/22 04:17: WBC 8.9, RBC 4.76, Hgb 14.7, Hct 42.7, MCV 89.7, MCH 30.9, MCHC 34.4, RDW Std Deviation 40.4, RDW Coeff of Juan Alberto 12.2, Plt Count 240, MPV 8.6, Immature Gran % (Auto) 0.200, Neut % (Auto) 61.3, Lymph % (Auto) 24.4, [place] % (Auto) 10.4 H, Eos % (Auto) 3.2, Baso % (Auto) 0.5, Absolute Neuts (auto) 5.5, Absolute Lymphs (auto) 2.16, Nucleated RBC % 0 06/03/22 04:17: Sodium 131 L, Potassium 4.0, Chloride 98, Carbon Dioxide 27.0, Anion Gap 6, BUN 8, Creatinine 0.89, Estim Creat Clear Calc 47.20, Est GFR (MDRD) Af Amer 79, Est GFR (MDRD) Non-Af 65, BUN/Creatinine Ratio 9.0 L, Glucose 141 H, Calcium 9.1, Phosphorus 2.9, Magnesium 2.0, Total Bilirubin 0.40, Direct Bilirubin 0.20, AST 16, ALT 19, Alkaline Phosphatase 58, Total Protein 6.9, Albumin 2.7 L, Globulin 4.2, Albumin/Globulin Ratio 0.6 L, Lipase 1420 H, TSH 24.20 H 06/03/22 04:17: Sodium Cancelled, Potassium Cancelled, Chloride Cancelled, Carbon Dioxide Cancelled, Anion Gap Cancelled, BUN Cancelled, Creatinine Cancelled, Estim Creat Clear Calc Cancelled, Est GFR (MDRD) Af Amer Cancelled, Est GFR (MDRD) Non-Af Cancelled, BUN/Creatinine Ratio Cancelled, Glucose Cancelled, Calcium Cancelled, Phosphorus Cancelled, Magnesium Cancelled, Total Bilirubin Cancelled, Direct Bilirubin Cancelled, AST Cancelled, ALT Cancelled, Alkaline Phosphatase Cancelled, Total Protein Cancelled, Albumin Cancelled, Globulin Cancelled, Lipase Cancelled 06/03/22 06:37: POC Glucose 136 H Radiography Diagnostic Testing: Radiology Impression Gallbladder Ultrasound 06/02/22 05:31 IMPRESSION: Prominent pancreas, may be secondary to pancreatitis. Fatty infiltration of the liver associated with hepatomegaly. Nonobstructing 6.4 mm right renal calculus. Electronically Signed: Annie Steward MD at 10:37 EST , Physical Exam Narrative GENERAL: cooperative HEENT: Atraumatic; normocephalic EYES; Anicteric, Normal Conjunctiva NECK; supple, normal thyroid, RESPIRATORY: Diminished to auscultation CARDIOVASCULAR: Regular S1 S2, GI: soft, normoactive bowel sounds, : No Renal angle tenderness; EXTREMITIES: No edema, no clubbing, MUSCULOSKELETAL: no muscle wasting NEURO: Awake; no lateralizing signs. SKIN: No Rash PSYCH; Flat affect Assessment & Plan Assessment/Plan (1) Acute pancreatitis: PLAN: Plan Patient is an 81-year-old female who presented with abdominal pain was found to have elevated lipase levels consistent with acute pancreatitis admitted to a monitored bed. Patient was also found to have markedly elevated blood pressure on admission 1. Acute pancreatitis ? Questionable alcohol induced pancreatitis. Patient has been admitted to onitored bed for symptom management. As part of her work-up CT of the abdomen was ordered which demonstrated fatty infiltration of the liver no gallstones or biliary ductal dilatation. Right upper quadrant ultrasound ordered on admission results pending. Patient was started on clear liquids on admission plan is advance as tolerated with improvement in patient's pain. -06/03/2022 result of patient right upper quadrant ultrasound reviewed.Patient seen abdominal pain significantly improved plan is to advance diet as tolerated 2. Acute hypertensive urgency ? Attributed to patient's pain do expect improvement in blood pressure with adequate control of patient's pain. Patient oral antihypertensives resumed 3. Fatty liver disease ? Due to combination of alcohol use as well as obesity 4. Hyperglycemia ? Secondary to new onset diabetes mellitus type 2 ? Patient hemoglobin A1c was 7.9. Patient started on Accu-Cheks before meals and at bedtime with sliding scale coverage 5. Acute renal insufficiency ? Started on IV fluid with subsequent monitoring of electrolyte ordered 6.Prominent endometrial stripe Seen on CT patient informed of the result with plans for patient to follow-up w [facility] TAX ASSOCIATE ATTORNEY following discharge 7. Class I obesity with BMI of 34.2 ? Weight loss advised 8. Hypothyroidism - Patient is on levothyroxine home dose continued 9. Depression with anxiety ? Patient is on citalopram and lorazepam as needed did continue 10. GERD ? On PPI did continue 11. DVT prophylaxis ? SC Lovenox Charges/Coding Visit Charges Inpatient E&M: 03539 Subs Hosp L2
[2022-06-03] MEDS: Pantoprazole Sodium 20 MG Tablet PO (09:59)
[2022-06-03] MEDS: Carvedilol 6.25 MG Tablet PO ×2 (09:59→22:29)
[2022-06-03] MEDS: amLODIPine 10 MG Tablet PO (09:59)
[2022-06-03] MEDS: Citalopram 40 MG TABLET PO (09:59)
[2022-06-03] MEDS: Enoxaparin 40 MG/0.4 ML Syringe SC (10:00)
[2022-06-03] MEDS: Potassium Chloride Oral Tablet 20 MEQ PO ×2 (10:00→16:19)
[2022-06-03] MEDS: FLU VACC QS2022-23(6MOS UP)/PF 60 MCG/0.5 ML SYRINGE IM (10:00)
[2022-06-03] MEDS: Aspirin 81 MG TAB.CHEW PO (10:12)
[2022-06-03] MEDS: Insulin Lispro 100 UNIT/ML INSULN.PEN SC (11:17)
[2022-06-03 11:40] LABS: Bedside Glucose 195 mg/dL (74-106)
[2022-06-03 17:30] LABS: Bedside Glucose 139 mg/dL (74-106)
[2022-06-03 23:30] LABS: Bedside Glucose 150 mg/dL (74-106)
--- NOTE | 2022-06-04 04:17 | NURSING ---
Nurse received care of this patient at this time.
[2022-06-04 04:27] VITALS: BP 145/65; PULSE 72; RESP 18; TEMP 36.9; O2SAT 93
[2022-06-04 04:30] VITALS: BP 145/65; PULSE 72; RESP 18; TEMP 36.9; O2SAT 94
[2022-06-04 06:05] LABS: Anion Gap 6 (5-15); BUN 14 mg/dL (7-18); BUN/Creat Ratio 15.1 RATIO (10-20); Calcium,Total 9.1 mg/dL (8.5-10.1); Chloride 96 mmol/L (98-107); Creatinine, Serum 0.93 mg/dL (0.55-1.02); EST Glomerular Filtration Rate 62 mL/min (>60); Est Glom Filt Rate - Afr Amer 75 mL/min (>60); Estimated Creatinine Clearance 45.17 ml/min; Glucose 136 mg/dL (74-106); Potassium 4.3 mmol/L (3.5-5.1); Sodium Level 130 mmol/L (136-145)
[2022-06-04] MEDS: Levothyroxine 100 MCG Tablet PO (06:43)
[2022-06-04 07:06] LABS: Bedside Glucose 139 mg/dL (74-106)
[2022-06-04 09:00] VITALS: BP 146/89; PULSE 65; RESP 18; TEMP 36.5; O2SAT 93
[2022-06-04 09:08] VITALS: BP 145/65; PULSE 72; RESP 18; TEMP 36.9; O2SAT 94
[2022-06-04] MEDS: amLODIPine 10 MG Tablet PO (09:14)
[2022-06-04] MEDS: Carvedilol 6.25 MG Tablet PO (09:14)
[2022-06-04] MEDS: Potassium Chloride Oral Tablet 20 MEQ PO (09:14)
[2022-06-04] MEDS: Citalopram 40 MG TABLET PO (09:14)
[2022-06-04] MEDS: Pantoprazole Sodium 20 MG Tablet PO (09:14)
[2022-06-04] MEDS: Enoxaparin 40 MG/0.4 ML Syringe SC (09:15)
[2022-06-04] MEDS: Aspirin 81 MG TAB.CHEW PO (09:20)
--- NOTE | 2022-06-04 11:33 | DCINST_ITS ---
Discharge Instructions Diet Discharge Diet: No restrictions Activity Discharge Activity: Return to Normal Activity Follow Up Care Test Results: Test results from this visit will be discussed in further detail at your follow- up appointment, if applicable. Discharge Plan Admission Admit Date/Time: 06/02/22 05:08 Primary Reason for Your Visit: Acute pancreatitis Attending Provider: Nirmala Yo Primary Care Provider: Nikhil Do Consulting Providers: Judy Curiel ; Zafar Ludwig Instructions Additional Instructions / Restrictions: You are strongly advised to quit drinking alcohoil. Keep yourself hydrated. Follow-up with PCP within 1 week. Discharge Orders/Prescriptions Prescriptions: New carvedilol 6.25 mg Tablet 6.25 mg PO BID 30 Days Qty: 60 0RF insulin glargine-yfgn 100 unit/mL (3 mL) Insulin Pen 5 unit subcut DINNER 30 Days Qty: 1.5 0RF (DME) pen needle, diabetic [Pen Needle] 32 gauge x 5/32 needle See Rx Instructions .Route Qty: 100 0RF Rx Instructions: As directed Continued citalopram 40 mg Tablet 40 mg PO DAILY levothyroxine 100 mcg Tablet 100 mcg PO DAILY lorazepam 0.5 mg Tablet 0.5 mg PO DAILY PRN (Reason: Anxiety) amlodipine [Norvasc] 10 mg Tablet 10 mg PO DAILY omeprazole 20 mg Capsule,Delayed Release(Dr/Ec) 20 mg PO DAILY aspirin 81 mg Tablet,Chewable 81 mg PO DAILY Other Ambulatory Orders: Glucometer (Routine) Timeframe: 1 Day Location: Determined by Patient Ordered By: Dr. Nirmala Yo Referrals / Follow Up: Nikhil Do DO [Primary Care Provider] - Disposition Disposition (needs filled in before D/C Order can be placed): Home, Self Care
[2022-06-04] MEDS: Insulin Lispro 100 UNIT/ML INSULN.PEN SC (11:37)
[2022-06-04 11:42] VITALS: BP 145/65; PULSE 72; RESP 18; TEMP 36.9; O2SAT 94
--- NOTE | 2022-06-04 11:43 | DS.PCM_ITS ---
Providers Date of Admission: 06/02/22 Date of Discharge: 06/04/22 Primary Care Physician: Dr. Nikhil Do DO Reason For Visit: ACUTE PANCREATITIS Diagnosis Discharge Diagnosis (1) Acute pancreatitis: Status: Acute Code(s): K85.90 - Acute pancreatitis without necrosis or infection, unspecified Medications at Discharge Home Medications amlodipine 10 mg tablet (Norvasc) 10 mg PO DAILY 06/02/22 aspirin 81 mg chewable tablet 81 mg PO DAILY 06/02/22 citalopram 40 mg tablet 40 mg PO DAILY 06/02/22 levothyroxine 100 mcg tablet 100 mcg PO DAILY 06/02/22 lorazepam 0.5 mg tablet 0.5 mg PO DAILY PRN Anxiety 06/02/22 omeprazole 20 mg capsule,delayed release 20 mg PO DAILY 06/02/22 carvedilol 6.25 mg tablet 6.25 mg PO BID 30 days #60 tabs 06/04/22 insulin glargine-yfgn 100 unit/mL (3 mL) subcutaneous pen 5 unit (0.05 mL) subcut DINNER 30 days #1.5 mL 06/04/22 pen needle, diabetic 32 gauge x 5/32 (Pen Needle) #100 ea 06/04/22 Hospital Course Operations None Procedures None Summary of Care Provided Minutes Spent on Discharge: 35 Hospital Course: 81-year-old with past medical history of alcohol abuse, drinks about 1/2 glass of vodka every night, nicotine dependent, hypertension who comes in with worsening abdominal pain. She was found to have elevated lipase and CT scan of the abdomen pelvis showed fatty infiltration of the liver, no gallstones or biliary duct pancreatitis. Patient was admitted to the progressive care unit and managed as acute pancreatitis. Right upper quadrant ultrasound showed showed pancreatitis with fatty infiltration of the liver with hepatomegaly. She had elevated blood pr essures that improved with pain control. She was found to be hyperglycemic and HbA1c was found to be elevated at 7.9. This is a new diagnosis for the patient. She was started on Lantus insulin. Her sugars were better controlled. Patient pancreatitis was believed to be secondary to alcohol use. She was strongly counseled to stop drinking alcohol. She was given resources for alcohol cessation. Patient was discharged with a glucometer, lancets, needles, lancets. She expressed comfort in giving herself insulins. She also received teaching from nursing with regards to insulin management. Patient will follow-up with her primary care doctor within a week for repeat blood work to follow-up on her liver function. She will also need gynecology referral at that time for abnormal CT finding of prominent endometrial stripe. Physical Exam Narrative Physical exam: General: Alert, Oriented x3, Cooperative HEENT: Atraumatic Oral: Moist Mucosa Neck: Supple Lungs: Clear to auscultation Cardiovascular: HS I+II, regular, no murmurs Abdomen: Bowel Sounds Present, Soft, Non Tender Extremities: No edema Skin: No rashes, No breakdown Neurological: Grossly intact Psych/Mental Status: Appropriate Weight / BMI Weight Weight: 96.2 kg Body Mass Index (BMI) 34.2 ABG / Lab / Microbiology Data Result Diagrams: 06/03/22 04:17 06/04/22 04:43 Laboratory: Laboratory Results - last 24 hr 06/03/22 16:14: POC Glucose 139 H 06/03/22 22:28: POC Glucose 150 H 06/04/22 04:43: Sodium 130 L, Potassium 4.3, Chloride 96 L, Carbon Dioxide 28.0, Anion Gap 6, BUN 14, Creatinine 0.93, Estim Creat Clear Calc 45.17, Est GFR (MDRD) Af Amer 75, Est GFR (MDRD) Non-Af 62, BUN/Creatinine Ratio 15.1, Glucose 136 H, Calcium 9.1 06/04/22 06:38: POC Glucose 139 H D/C Instructions Discharge Diet: No restrictions Meaningful Use Info Meaningful Use Diagnoses (Choose all that apply): None applicable Discharge Plan Admission Admit Date/Time: 06/02/22 05:08 Primary Reason for Your Visit: Acute pancreatitis Attending Provider: Nirmala Yo Primary Care Provider: Nikhil Do Consulting Providers: Judy Curiel ; Zafar Ludwig Instructions Additional Instructions / Restrictions: You are strongly advised to quit drinking alcohoil. Keep yourself hydrated. Follow-up with PCP within 1 week. Discharge Orders/Prescriptions Prescriptions: New carvedilol 6.25 mg Tablet 6.25 mg PO BID 30 Days Qty: 60 0RF insulin glargine-yfgn 100 unit/mL (3 mL) Insulin Pen 5 unit subcut DINNER 30 Days Qty: 1.5 0RF (DME) pen needle, diabetic [Pen Needle] 32 gauge x 5/32 needle See Rx Instructions .Route Qty: 100 0RF Rx Instructions: As directed Continued citalopram 40 mg Tablet 40 mg PO DAILY levothyroxine 100 mcg Tablet 100 mcg PO DAILY lorazepam 0.5 mg Tablet 0.5 mg PO DAILY PRN (Reason: Anxiety) amlodipine [Norvasc] 10 mg Tablet 10 mg PO DAILY omeprazole 20 mg Capsule,Delayed Release(Dr/Ec) 20 mg PO DAILY aspirin 81 mg Tablet,Chewable 81 mg PO DAILY Other Ambulatory Orders: Glucometer (Routine) Timeframe: 1 Day Location: Determined by Patient Ordered By: Dr. Nirmala Yo Referrals / Follow Up: Nikhil Do DO [Primary Care Provider] - Disposition Disposition (needs filled in before D/C Order can be placed): Home, Self Care Charges/Coding Visit Charges Inpatient E&M: 54136 Disch Hosp
--- NOTE | 2022-06-04 11:46 | CASEMGMT ---
Physician told SW patient's Pancreatitis is from alcohol use. SW met with patient. Introduced self and role at [facility]. SW asked patient if she would like any resources to assist her with cutting back in her alcohol consumption. Patient declined stating she doesn't drink that much. Patient was telling SW how much she drinks. SW told her that it is enough to cause her to develop Pancreatitis. Patient continued to decline resources. Patient mentioned depression. SW asked patient if she would like counseling resources for depression and patient declined. Esther LUDWIG
[2022-06-04 12:25] LABS: Free T3 0.7 pg/mL (2.18-3.98)
[2022-06-04 12:26] LABS: Bedside Glucose 216 mg/dL (74-106)
== END 2022-06-04 12:47 | disposition home or self-care (01) ==
LOC: ED 05:32 → PCU 07:32
PROVIDERS: Internal Medicine; Admitting Provider Internal Medicine; Emergency Provider Emergency Medicine; PCP Student in an Organized Health Care Education/Training Program; Visit Provider Internal Medicine
DX: K85.90 Acute pancreatitis without necrosis or infection, unspecified (principal); E11.9 Type 2 diabetes mellitus without complications; R14.0 Abdominal distension (gaseous); F17.210 Nicotine dependence, cigarettes, uncomplicated; I10 Essential (primary) hypertension; K76.0 Fatty (change of) liver, not elsewhere classified; R16.0 Hepatomegaly, not elsewhere classified; K21.9 Gastro-esophageal reflux disease without esophagitis; R53.1 Weakness; E03.9 Hypothyroidism, unspecified; F41.8 Other specified anxiety disorders; Z79.899 Other long term (current) drug therapy; Z79.890 Hormone replacement therapy; Z79.82 Long term (current) use of aspirin; K57.90 Diverticulosis of intestine, part unspecified, without perforation or abscess without bleeding; K59.00 Constipation, unspecified; I16.0 Hypertensive urgency; E66.9 Obesity, unspecified; Z68.34 Body mass index [BMI] 34.0-34.9, adult; N28.9 Disorder of kidney and ureter, unspecified; F10.10 Alcohol abuse, uncomplicated; Z23 Encounter for immunization
CPT/HCPCS: 36415; 74177; 76705; 80048; 80053; 80061; 80076; 81001; 82248; 82962; 83036; 83690; 83735; 84100; 84439; 84443; 84481; 85025; 96360; 96361; 96372; 97802; 99218; 99251; 99285; 99406; G0008; J7040; J7120; Q9967; 90686; A4216; G0378; G0463